=== PATIENT | male | born 1960 | race Caucasian/White ===

== ENCOUNTER 2017-01-17 16:19 | Emergency (ER) | payer SELFPAY ==
[~2017-01-17] VITALS: Ht 167.6 cm; Wt 64.0 kg
[2017-01-17 16:28] VITALS: BP 113/63
[2017-01-17] MEDS ORDERED: SODIUM CHLORIDE 0.9% 1,000 ML IV ONE (16:48)
[2017-01-17] MEDS ORDERED: SODIUM CHLORIDE FLUSH 10ML SYR IVF ONE (17:00)
[2017-01-17] MEDS ORDERED: SODIUM CHLORIDE 0.9% 1,000ML IVBOLUS ONE (17:00)
== END 2017-01-17 17:48 | disposition home or self-care (01) ==
LOC: ED 17:42
DX: R55 Syncope and collapse (principal); E78.5 Hyperlipidemia, unspecified
CPT/HCPCS: 71010; 93005; 99284; J7030